=== PATIENT | male | born 1960 | race Caucasian/White ===

== ENCOUNTER 2020-04-02 06:51 | Outpatient (CLI) | payer BC, SELFPAY ==
--- NOTE | ~2020-04-02 | CT_ITS ---
EXAMINATION: CT abdomen pelvis w con DATE: 04/02/2020 07:32 INDICATION: Left lower quadrant pain TECHNIQUE: Computed tomography (CT) of the abdomen and pelvis was performed with 100 cc Omnipaque 350 intravenous contrast. The dose-length product was 644.55 mGy-cm. Automated exposure control and iter ative reconstruction technique were employed. COMPARISON: Comparison to multiple prior studies sequentially, with oldest reviewed study dated 07/23 FINDINGS: Lung bases are unremarkable. Heart size normal. There are several small subcentimeter hypod ensities of the liver, most likely benign cysts. The spleen, pancreas, adrenal glands and kidneys are unremarkable. Gallbladder is present. Nonobstructive bowel gas pattern. Stable cystic structure in t he right pelvis measuring 5.9 x 3.6 cm axial dimension, unchanged from prior studies, likely postsurg ical seroma or lymphangioma. Colonic diverticulosis without evidence for diverticulitis. Normal appen kaykay. No free air or free fluid. Bladder is decompressed. Gallbladder is present. Mild lumbar spondylo sis. IMPRESSION: 1. No acute abdominal abnormality. Reviewed, dictated and finalized at location B.
[2020-04-02 07:24] LABS: Estimated Glomerular Filt Rate > 60
== END 2020-04-02 06:52 | disposition home or self-care (01) ==
LOC: ANHIMG 06:56
PROVIDERS: PCP Family Medicine Adolescent Medicine; Visit Provider Internal Medicine Gastroenterology
DX: R10.32 Left lower quadrant pain (principal)
CPT/HCPCS: 74177; Q9967

== ENCOUNTER 2020-06-27 12:37 | Outpatient (CLI) | payer BC, SELFPAY ==
--- NOTE | ~2020-06-27 | CT_ITS ---
EXAMINATION: CT abdomen pelvis w con INDICATION: Diverticulitis of the large intestine without perforation TECHNIQUE: Computed tomographic images of the abdomen and pelvis were obtained after the administrati on of 100 cc of Omnipaque 350 intravenous contrast. The dose-length product (DLP) was 1039.98 mGy-cm. Automated exposure control and iterative reconstruction technique were employed. COMPARISON: 04/02/2020 FINDINGS: Minimal dependent atelectasis is present in the lung bases. The heart size is normal. Chron ic cysts of the liver measure up to 10 mm in the right hepatic lobe. The spleen, pancreas, gallbladde r, and adrenal glands are normal. There is a 7 mm cyst of the left kidney. Small accessory renal vein and artery are noted in the right kidney lower pole. There is calcified atherosclerosis of the aorta and many of the other arteries. No pathologically enlarged abdominal or pelvic lymph nodes are ident ified. There is a chronic, benign 5.9 x 3.4 cm fluid attenuation lesion of the right pelvis which has been stable since the postprostatectomy, most consistent with a peritoneal inclusion cyst, seroma, o r lymphangioma. The appendix is normal. Colonic diverticulosis is present without evidence of diverti culitis. There is mild lumbar spondylosis. IMPRESSION: 1. Diverticulosis without evidence of diverticulitis. Reviewed, dictated and finalized at location A. OG CIRCUIT DESIGNER
[2020-06-27 13:11] LABS: Estimated Glomerular Filt Rate > 60
== END 2020-06-27 12:38 | disposition home or self-care (01) ==
LOC: ANHIMG 12:38
PROVIDERS: PCP Family Medicine Adolescent Medicine; Visit Provider Surgery
DX: K57.30 Diverticulosis of large intestine without perforation or abscess without bleeding (principal)
CPT/HCPCS: 74177; Q9967

== ENCOUNTER 2021-05-04 16:22 | Inpatient (IN) | payer BC, SELFPAY ==
[2021-05-04] VITALS (22 sets, daily range): BP systolic 123–156; BP diastolic 61–91; PULSE 70–79; RESP 12–20; TEMP 36.3–36.6; O2SAT 90–98; BMI 28.3
--- NOTE | ~2021-05-04 | CT_ITS ---
EXAMINATION: CT abdomen pelvis w con DATE: 05/04/2021 18:54 INDICATION: History of diverticulitis. Generalized abdominal pain and nausea. TECHNIQUE: Computed tomography (CT) of the abdomen and pelvis was performed with 100 cc Omnipaque 350 intravenous contrast. The dose-length product was 828.61 mGy-cm. Automated exposure control and iter ative reconstruction technique were employed. COMPARISON: CT dated 06/27/2020. FINDINGS: There is bibasilar atelectasis/scarring. Heart size is normal. No significant pleural or pe ricardial effusion. No significant vascular abnormality. No lymphadenopathy. Fatty infiltration of the liver. There are several small low-density lesions in the liver which are m ost likely benign cysts. The spleen, pancreas, adrenal glands and right kidney are unremarkable. Ther e is a subcentimeter hypodensity of the left kidney which is unchanged, likely benign cysts. Gallblad marcia is present. Nonobstructive bowel gas pattern. There is thickening of the proximal sigmoid colon with surrounding inflammation, consistent with acut e diverticulitis. No evidence for perforation or abscess. No free air or free fluid. There is a stabl e low-density fluid collection along the obturator location of the right pelvis, likely benign postop erative lymphangioma or peritoneal inclusion cyst. Mild osteoarthritis of the hips. There is mild lum bar spondylosis. IMPRESSION: 1. Acute uncomplicated diverticulitis. Reviewed, dictated and finalized at location A. RERS HELPER
[2021-05-04 17:12] LABS: Basophils Absolute Auto 0.1 K/mm3 (0.0-0.1); Basophils Percent Auto 0.5 % (0.2-1.2); Eosinophils Absolute Auto 0.2 K/mm3 (0-0.3); Hematocrit 42.5 % (42.0-52.0); Hemoglobin 15.4 g/dL (14.0-18.0); Immature Granulocyte Absolute 0.06 K/mm3 (0.00-0.031); Immature Granulocyte Percent A 0.6 % (0-0.5); Lymphocytes Absolute Auto 1.41 K/mm3 (0.9-3.2); Lymphocytes Percent Auto 13.1 % (18.3-44.2); Mean Corpuscular HGB Conc 36.2 g/dl (32-36); Mean Corpuscular Hemoglobin 37.1 pg (26-34); Mean Corpuscular Volume 102.4 fl (80-100); Monocytes Absolute Auto 0.8 K/mm3 (0.1-0.6); Neutrophils Absolute Auto 8.3 K/mm3 (1.3-6.7); Neutrophils Percent Auto 76.8 % (45.5-73.1); Platelet Count Result 146 k/mm3 (150-375); Red Blood Count 4.15 M/mm3 (4.6-6.20); Red Cell Distribution Width 13.7 % (11.5-14.5); White Blood Count 10.8 K/mm3 (4.5-10.0)
[2021-05-04 17:21] LABS: Chloride 102 mmol/L (98-107)
[2021-05-04 17:36] LABS: Alanine Aminotransferase 33 U/L (4-50); Albumin Level 4.3 g/dL (3.5-5.1); Alkaline Phosphatase 94 U/L (38-126); Anion Gap 8 mmol/L (8-16); Aspartate Amino Transferase 36 U/L (17-59); Bilirubin,Total 0.6 mg/dL (0.2-1.3); Blood Urea Nitrogen 14 mg/dL (9-20); Calcium 9.3 mg/dL (8.4-10.2); Carbon Dioxide 28 mmol/L (22-30); Estimated CRCL calculation 102 ml/min; Estimated Glomerular Filt Rate > 60; Glucose 111 mg/dL (65-110); Lipase 65 U/L (23-300); Potassium 3.7 mmol/L (3.4-5.0); Sodium 138 mmol/L (137-145)
[2021-05-04 17:58] LABS: Add Urine Microscopic? YES; Appearance Urine Clear (Clear); Bilirubin Urine Negative (Negative); Blood Urine Negative (Negative); Color Urine Yellow (Yellow); Glucose Urine UA Negative (Negative); Ketones Urine Negative (Negative); Leukocyte Esterase Ur Trace LEU/UL (Negative); Mucus Urine Few /lpf; Nitrate Urine Negative (Negative); Protein Urine Negative (Negative); RBC Urine 0-2 /hpf (0-2); Specific Grav Ur 1.024 (1.001-1.035); Squamous Epithelial Cell Urine Rare /hpf (Few); Urobilinogen Urine Negative mg/dL (<2.0); WBC Urine 0-3 /hpf
--- NOTE | 2021-05-04 18:10 | ED.ABDPAIN ---
HPI - Abdominal Pain General Chief Complaint: Abdominal Pain Stated Complaint: diverticulitis Time Seen by Provider: 05/04/21 17:58 Source: patient, family and RN notes reviewed Mode of arrival: ambulatory Limitations: no limitations History of Present Illness HPI narrative: Left lower quadrant pain radiating across the abdomen started last night associated with nausea. Patient denies any fever, chills, vomiting, diarrhea, constipation. Patient reports having similar symptoms in the past secondary to diverticulitis. This 1 is the worst. Related Data Home Medications Medication Instructions Recorded Confirmed alprazolam 1 mg PO DAILY 04/28/19 08/01/20 amlodipine 5 mg PO DAILY 04/28/19 08/01/20 aspirin 325 mg PO DAILY 04/28/19 08/01/20 omeprazole 20 mg PO DAILY 04/28/19 08/01/20 simvastatin 20 mg PO DAILY 04/28/19 08/01/20 Allergies Allergy/AdvReac Type Severity Reaction Status Date / Time No Known Allergies Allergy Verified 05/04/21 18:14 Review of Systems Review of Systems: CONSTITUTIONAL: Denies fever, chills, or sweats. EYES: Denies visual changes, redness, or discharge. ENT: Denies rhinorrhea, congestion, sore throat, or otalgia. CARDIOVASCULAR: Denies chest pain, palpitations, or edema. RESPIRATORY: Denies cough or dyspnea. GASTROINTESTINAL: Denies abdominal pain, nausea, vomiting, or diarrhea. GENITOURINARY: Denies dysuria or hematuria. SKIN: Denies rash or itching. MUSCULOSKELETAL: Denies back pain, joint pain, or myalgia. NEUROLOGIC: Denies headache, numbness, or weakness. PSYCHIATRIC: Denies anxiety or depression. [facility] Past Medical History Medical History Anxiety Asthma Degenerative disc disease Diverticulitis GERD (gastroesophageal reflux disease) Hypercholesterolemia Hypertension Neck pain with history of cervical spinal surgery Prostate cancer Surgical History Surgical History H/O Spinal surgery History of prostate surgery Hx of skin graft on top of bilateral feet Family History Family History Mother Patient's mother is in good health Sibling Patient's sister is in good health Patient's brother is in good health Other Cerebrovascular accident Hypertension Social History Social History Smoking packs per day: 1.5 Smoking cigarettes per day: 30.0 Years smoked: 40 Smoking pack-years: 60.00 Smoking status: Current every day smoker Tobacco type: cigarettes Alcohol intake: current Alcohol use details: social Additional occupation/education comments: [employer] Gender identity (if verbalized by the patient): Male Exam Narrative: General appearance: Well-developed, well-nourished Skin: Normal color Head: Normocephalic, nontraumatic Eyes: Clear conjunctiva ENT: Oropharynx normal, ears normal, nose normal Neck: Supple, nontender Chest and respiratory: Airway patent, no respiratory distress, no accessory muscle use Heart: Regular rate/rhythm Abdomen: Soft, severe tenderness left lower quadrant, positive guarding and rebound, no organomegaly, quiet bowel sounds Vascular: Normal peripheral pulses, normal capillary refill. Musculoskeletal: Normal range of motion, nontender back Neurologic: Alert and oriented ?3, [place] [employer] is normal as tested, no gross motor deficit Course Course Emergency Course: Stable Vital Signs Vital signs: Vital Signs Pulse Rate 79 05/04/21 16:47 Respiratory Rate 14 05/04/21 16:47 Blood Pressure 132/76 05/04/21 16:47 Pulse Oximetry 97 04/14
[2021-05-04] MEDS: ONDANSETRON INJ 4 MG/2 ML VIAL IV PUSH (18:32)
[2021-05-04] MEDS: HYDROmorphone HCL INJ (*CRX) 1 MG/ML SYR 0.5 MG IV PUSH ×2 (18:32→20:54)
[2021-05-04] MEDS: SODIUM CHLORIDE 0.9% IV 1,000 ML 999 ML IV CONT (18:32)
[2021-05-04] MEDS: SODIUM CHLORIDE 0.9% IV 1,000 ML 125 ML IV CONT (20:28)
--- NOTE | 2021-05-04 22:53 | PM.IMHP ---
H&P: HPI History of Present Illness Date/Time: 05/04/21 22:53 Chief Complaint: Abdominal pain Narrative: This is a 61-year-old male who presents with left lower quadrant pain radiating across the abdomen that started since last night associated with nausea no vomiting no fever chills diarrhea or constipation. He had similar episodes in the past related to diverticulitis ER evaluation suggestive uncomplicated diverticulitis. He is getting admitted for further treatment Review of Systems Review of Systems: - CONSTITUTIONAL: Denies weight loss, fever and chills. - HEENT: Denies changes in vision and hearing - RESPIRATORY: Denies SOB and cough. - CV: Denies palpitations and CP. - GI: Reports abdominal pain, nausea, denies vomiting and diarrhea. - : Denies dysuria and urinary frequency. - MSK: Denies myalgia and joint pain. - SKIN: Denies rash and pruritus. - NEUROLOGICAL: Denies headache and syncope. - PSYCHIATRIC: Denies recent changes in mood. Denies anxiety and depression. All systems reviewed & are unremarkable except as noted in HPI and below Constitutional: Constitutional: Reports fatigue and Reports weakness Neurologic: Reports weakness Endocrine: Endocrine: Reports fatigue [facility] Past Medical History Medical History (Updated 05/04/21 @ 22:56 by Wan Dixon MD) Anxiety Asthma Degenerative disc disease Diverticulitis GERD (gastroesophageal reflux disease) Hypercholesterolemia Hypertension Neck pain with history of cervical spinal surgery Prostate cancer Surgical History Surgical History H/O Spinal surgery History of prostate surgery Hx of skin graft on top of bilateral feet Family History Family History Mother Patient's mother is in good health Sibling Patient's sister is in good health Patient's brother is in good health Other Cerebrovascular accident Hypertension Social History Social History Smoking packs per day: 1.5 Smoking cigarettes per day: 30.0 Years smoked: 40 Smoking pack-years: 60.00 Smoking status: Current every day smoker Tobacco type: cigarettes Alcohol intake: current Alcohol use details: social Additional occupation/education comments: [employer] Gender identity (if verbalized by the patient): Male Meds Home Medications and Allergies Home Medications Medication Instructions Recorded Confirmed Type alprazolam 1 mg PO DAILY 04/28/19 08/01/20 History amlodipine 5 mg PO DAILY 04/28/19 08/01/20 History aspirin 325 mg PO DAILY 04/28/19 08/01/20 History omeprazole 20 mg PO DAILY 04/28/19 08/01/20 History simvastatin 20 mg PO DAILY 04/28/19 08/01/20 History Allergies Allergy/AdvReac Type Severity Reaction Status Date / Time No Known Allergies Allergy Verified 05/04/21 18:14 Vital Signs Vital Signs - 24 hr 05/04/21 16:47 05/04/21 17:49 05/04/21 17:50 Temperature Pulse Rate 79 75 Respiratory Rate 14 13 Blood Pressure 132/76 147/91 H Pulse Oximetry 97 05/04/21 18:00 05/04/21 18:12 05/04/21 18:15 Temperature 97.8 F Pulse Rate 75 72 73 Respiratory Rate 13 12 16 Blood Pressure 149/73 H Pulse Oximetry 97 96 05/04/21 18:17 05/04/21 18:30 05/04/21 19:45 Temperature Pulse Rate 72 Respiratory Rate Blood Pressure 156/88 H Pulse Oximetry 95 97 95 05/04/21 19:47 05/04/21 20:02 05/04/21 20:04 Temperature Pulse Rate 72 Respiratory Rate Blood Pressure 130/68 123/75 Pulse Oximetry 05/04/21 20:17 05/04/21 20:25 05/04/21 20:34 Temperature Pulse Rate Respiratory Rate Blood Pressure 151/74 H 148/83 H Pulse Oximetry 94 98 05/04/21 21:39 05/04/21 21:47 05/04/21 21:48 Temperature Pulse Rate 76 Respiratory Rate 20 Blood Pressure 132/66 132/61 Pulse Oximetry 98 94 91 05/04/21
[2021-05-04] MEDS: MORPHINE SULFATE (*CRX) 4 MG/ML INJ IV PUSH (23:30)
[2021-05-05] MEDS: MORPHINE SULFATE (*CRX) 4 MG/ML INJ IV PUSH ×8 (02:07→20:41)
[2021-05-05] MEDS: SODIUM CHLORIDE 0.9% IV 1,000 ML 125 ML IV CONT (04:24)
[2021-05-05 06:12] VITALS: BP 152/70; PULSE 80; RESP 18; TEMP 36.6; O2SAT 91
[2021-05-05 06:19] LABS: Basophils Percent Auto 0.4 % (0.2-1.2); Eosinophils Absolute Auto 0.2 K/mm3 (0-0.3); Eosinophils Percent Auto 2.2 % (0-4.4); Hematocrit 38.4 % (42.0-52.0); Hemoglobin 13.5 g/dL (14.0-18.0); Immature Granulocyte Absolute 0.05 K/mm3 (0.00-0.031); Immature Granulocyte Percent A 0.5 % (0-0.5); Lymphocytes Percent Auto 12.2 % (18.3-44.2); Mean Corpuscular HGB Conc 35.2 g/dl (32-36); Mean Corpuscular Volume 102.4 fl (80-100); Monocytes Absolute Auto 0.6 K/mm3 (0.1-0.6); Monocytes Percent Auto 6.4 % (2.6-8.5); Neutrophils Absolute Auto 7.7 K/mm3 (1.3-6.7); Neutrophils Percent Auto 78.3 % (45.5-73.1); Platelet Count Result 147 k/mm3 (150-375); Red Blood Count 3.75 M/mm3 (4.6-6.20); Red Cell Distribution Width 13.4 % (11.5-14.5); White Blood Count 9.9 K/mm3 (4.5-10.0)
[2021-05-05 08:44] LABS: Anion Gap 6 mmol/L (8-16); Blood Urea Nitrogen 11 mg/dL (9-20); Calcium 8.5 mg/dL (8.4-10.2); Carbon Dioxide 28 mmol/L (22-30); Chloride 100 mmol/L (98-107); Estimated CRCL calculation 102 ml/min; Estimated Glomerular Filt Rate > 60; Glucose 93 mg/dL (65-110); Magnesium 1.7 mg/dL (1.6-2.3); Potassium 3.9 mmol/L (3.4-5.0); Sodium 134 mmol/L (137-145)
[2021-05-05] MEDS: ENOXAPARIN 40 MG/0.4 ML SYRINGE SUB-Q (09:17)
--- NOTE | 2021-05-05 09:26 | PM.IMPN ---
Progress Note: A&P Assessment and Plan (1) Acute diverticulitis: Code(s): K57.92 - Diverticulitis of intestine, part unspecified, without perforation or abscess without bleeding Status: Acute Assessment and Plan: Patient is a 61-year-old man with a history of recurrent diverticulitis. The patient states he has about 6-7 flares of diverticulitis every year for the last 2 years. He has discuss with a surgeon for possible colon resection, but he has not underwent surgery. Usually his primary care prescribe him oral antibiotics to take at home but since his pain began over the weekend he came to the ER for further evaluation. Initial vitals were stable, stable blood pressure, non tachycardic, afebrile. Initial labs showed leukocytosis at 10,800, with elevated neutrophils. Normal CMP other than slightly elevated glucose at 111. Normal urinalysis. CT abdomen pelvis showed acute uncomplicated diverticulitis. The patient was admitted into the hospital for acute diverticulitis and started on IV Zosyn and IV fluid hydration along with I would be antiemetics and pain medications. Patient still having significant discomfort this morning. Able tolerate clear liquid diet Will lower IV fluids to 90 cc/hour and if he tolerates his lunch without any issues I will discontinue his fluids Will advance his diet to full liquid diet since he is not having any issues with eating as abdominal discomfort Will of initially advance diet to a low-fiber/low residual Hopefully 1-2 more days of hospitalization with IV antibiotics will help with his pain and symptoms Continue monitoring and checking labs daily. (2) Hypercholesterolemia: Code(s): E78.00 - Pure hypercholesterolemia, unspecified Status: Acute Assessment and Plan: Continue statin medication (3) Hypertension: Code(s): I10 - Essential (primary) hypertension Status: Acute Assessment and Plan: Blood pressure this morning was 152/70 prior to his medications being given. Most likely elevated blood pressure given pain Continue monitoring his blood pressure and adjustments if needed. Additional Plan # DVT prophylaxis Lovenox # full code status Time Spent With Patient Time with patient: 25 - 35 minutes Subjective Date/time seen: 05/05/21 09:26 Interval history: Date of service 05/05/2021: The patient reports still having left lower abdominal pain. He states that is pretty significant at this time he is waiting for another IV pain medication injection. He has been able to eat his clear liquid diet without any issues. Denies any nausea, vomiting, diarrhea, constipation. He denies any fevers, chills, chest pain, shortness of breath, cough, leg swelling, calf pain or any other symptoms at this time. Review of Systems Review of Systems: All systems reviewed & are unremarkable except as noted in HPI and below Exam Narrative: General: 61-year-old man sitting up on the side of the bed holding his left lower quadrant. Appears slightly uncomfortable. In no acute distress. Skin: No jaundice or cyanosis. Good skin turgor. Neck: Full range of motion. Supple. Respiratory: Lungs are clear to auscultation bilaterally. No bony chest wall tenderness. Cardiovascular: The heart has a regular rate and rhythm without murmur. Lower extremities: No lower extremity edema. Distal pulses are easily palpated. No calf tenderness to palpation. Gastrointestinal: Diffuse abdominal distension, tenderness to palpation of left lower and upper quadrant. No rebound or guarding. The abdomen has active bowel sounds. Psychiatric: Lucid and oriented. Memory intact. Neurologic: No focal deficits. Speech is clear. No facial drooping. Objective Data Vital Signs Vital Signs: Vital Signs - 24 hr 05/04/21 16:47 05/04/21 17
[2021-05-05 14:00] VITALS: BP 122/65; PULSE 72; RESP 20; TEMP 36.7; O2SAT 94
[2021-05-05 20:51] VITALS: PULSE 73; O2SAT 90
[2021-05-05 21:35] VITALS: BP 124/56; PULSE 73; RESP 18; TEMP 36.6; O2SAT 89
[2021-05-06] MEDS: MORPHINE SULFATE (*CRX) 4 MG/ML INJ IV PUSH ×2 (00:11→05:31)
[2021-05-06 06:45] LABS: Hemoglobin 13.9 g/dL (14.0-18.0); Mean Corpuscular HGB Conc 35.6 g/dl (32-36); Mean Corpuscular Hemoglobin 36.9 pg (26-34); Mean Corpuscular Volume 103.4 fl (80-100); Mean Platelet Volume 10.5 fl (7.4-10.4); Platelet Count Result 142 k/mm3 (150-375); Red Blood Count 3.77 M/mm3 (4.6-6.20); Red Cell Distribution Width 13.4 % (11.5-14.5); White Blood Count 7.2 K/mm3 (4.5-10.0)
[2021-05-06 06:57] LABS: Anion Gap 6 mmol/L (8-16); Blood Urea Nitrogen 9 mg/dL (9-20); Carbon Dioxide 29 mmol/L (22-30); Chloride 101 mmol/L (98-107); Estimated CRCL calculation 102 ml/min; Estimated Glomerular Filt Rate > 60; Glucose 104 mg/dL (65-110); Potassium 3.8 mmol/L (3.4-5.0); Sodium 136 mmol/L (137-145)
[2021-05-06 08:00] VITALS: BP 143/65; PULSE 73; RESP 20; TEMP 36.4; O2SAT 94
[2021-05-06] MEDS: HYDROcodone/acetaminophen (*CRX) 5-325 MG TABLET 1 TAB PO (09:15)
[2021-05-06] MEDS: ENOXAPARIN 40 MG/0.4 ML SYRINGE SUB-Q (09:17)
[2021-05-06] MEDS: PANTOPRAZOLE 40 MG TABLET PO (09:20)
[2021-05-06] MEDS: amLODIPine BESYLATE 5 MG TABLET PO (09:20)
[2021-05-06] MEDS: SIMVASTATIN 20 MG TABLET PO (09:20)
[2021-05-06] MEDS: ASPIRIN 325 MG TABLET PO (09:20)
--- NOTE | 2021-05-06 10:33 | PM.DS ---
DS: Admitting Diagnosis Discharge Date 05/06/21 Admitting Diagnosis Abd pain DS: Discharge Diagnosis Discharge Diagnosis (1) Acute diverticulitis: Code(s): K57.92 - Diverticulitis of intestine, part unspecified, without perforation or abscess without bleeding Status: Acute Assessment and Plan: Patient is a 61-year-old man with a history of recurrent diverticulitis. The patient states he has about 6-7 flares of diverticulitis every year for the last 2 years. He has discuss with a surgeon for possible colon resection, but he has not underwent surgery. Usually his primary care prescribe him oral antibiotics to take at home but since his pain began over the weekend he came to the ER for further evaluation. Initial vitals were stable, stable blood pressure, non tachycardic, afebrile. Initial labs showed leukocytosis at 10,800, with elevated neutrophils. Normal CMP other than slightly elevated glucose at 111. Normal urinalysis. CT abdomen pelvis showed acute uncomplicated diverticulitis. The patient was admitted into the hospital for acute diverticulitis and started on IV Zosyn and IV fluid hydration along with I would be antiemetics and pain medications. Patient is feeling much better at this time and tolerating a low fiber diet He feels comfortable at this time and wants to be discharged home. He has antibiotics and pain medications prescribed by his PCP at home for a total of 7 days of treatment. I told him to take it in full until gone. I prescribed a Probiotic. He will follow up with PCP in 1 week. Return to ER warnings given. Patient understands agrees the plan all questions answered (2) Hypercholesterolemia: Code(s): E78.00 - Pure hypercholesterolemia, unspecified Status: Acute Assessment and Plan: Continue statin medication (3) Hypertension: Code(s): I10 - Essential (primary) hypertension Status: Acute Assessment and Plan: Blood pressure this morning was 143/65 prior to his medications being given. DS: Summary Hospital Course Hospital Course: See above Time Spent with Patient Time attestation: Total time spent providing and/or coordinating discharge services: 41 Exam Narrative: General: 61-year-old man laying on his right side in bed resting. Appears slightly comfortable at this time and while moving to his back on the bed. In no acute distress. Skin: No jaundice or cyanosis. Good skin turgor. Neck: Full range of motion. Supple. Respiratory: Lungs are clear to auscultation bilaterally. No bony chest wall tenderness. Cardiovascular: The heart has a regular rate and rhythm without murmur. Lower extremities: No lower extremity edema. Distal pulses are easily palpated. No calf tenderness to palpation. Gastrointestinal: No abd tenderness. Soft to palpation. No rebound or guarding. The abdomen has active bowel sounds. Psychiatric: Lucid and oriented. Memory intact. Neurologic: No focal deficits. Speech is clear. No facial drooping. DS: Data Data Completed and Pending Labs on day of discharge: Labs from last 24 hours 05/06/21 05/06/21 05/06/21 08:14 05:55 05:55 WBC 7.2 RBC 3.77 L Hgb 13.9 L Hct 39.0 L MCV 103.4 H MCH 36.9 H MCHC 35.6 RDW 13.4 Plt Count 142 L MPV 10.5 H Sodium 136 L Potassium 3.8 Chloride 101 Carbon Dioxide 29 Anion Gap 6 L BUN 9 Creatinine 0.70 Estim Creat Clear Calc 102 Estimated GFR > 60 Glucose 104 Calcium 9.0 Magnesium 2.0 Vitamin B12 299.0 Folate Pending Discharge Plan Discharge Attending physician on discharge: Aleah Doll Discharging Clinician: Rianna Arroyo Anticipated Discharge Date/Time: 05/06/21 10:30 Patient Disposition: Home, Self-Care Activity: as tolerated
[2021-05-06 11:25] LABS: Folic Acid 7.2 ng/mL (2.76->20)
== END 2021-05-06 11:05 | disposition home or self-care (01) | DRG 392 ==
LOC: ANHED 19:22 → ANH3MEDSUR 23:13
PROVIDERS: Admitting Provider Internal Medicine; Emergency Provider Emergency Medicine; PCP Family Medicine Adolescent Medicine; Visit Provider Physician Assistant
DX: K57.32 Diverticulitis of large intestine without perforation or abscess without bleeding (principal); E78.00 Pure hypercholesterolemia, unspecified; I10 Essential (primary) hypertension; K21.9 Gastro-esophageal reflux disease without esophagitis; J45.909 Unspecified asthma, uncomplicated; F41.9 Anxiety disorder, unspecified; F17.210 Nicotine dependence, cigarettes, uncomplicated; Z85.46 Personal history of malignant neoplasm of prostate
CPT/HCPCS: 36415; 74177; 80048; 80053; 81001; 82607; 82746; 83690; 83735; 85025; 85027; 96361; 96374; 96375; 99285; A9270; J1170; J1650; J2270; J2405; J2543; J7030; Q9967

== ENCOUNTER 2021-06-16 12:00 | Outpatient (CLI) | payer BC, SELFPAY ==
--- NOTE | 2021-06-16 12:39 | ECG_ITS ---
Rate 67 ID 106 QRSd 141 QT 369 QTc 392 --Combs-- P 22 QRS -44 T -11 SINUS RHYTHM WITH SHORT ID INTERVAL LEFT AXIS DEVIATION RIGHT BUNDLE BRANCH BLOCK BASELINE ARTIFACT- I, II, III, AVR, AVL, AVF, V4-V6 ABNORMAL ECG Electronically Signed On 06-17-2021 9:57:58 EXTERNAL RELATIONS MANAGER by Dionte [id number]
== END 2021-06-16 12:01 | disposition home or self-care (01) ==
LOC: ANHSURGERY 12:04
PROVIDERS: PCP Family Medicine Adolescent Medicine; Visit Provider Surgery
DX: K57.92 Diverticulitis of intestine, part unspecified, without perforation or abscess without bleeding (principal); Z01.818 Encounter for other preprocedural examination
CPT/HCPCS: 36415; 86850; 86900; 86901; 93005

== ENCOUNTER 2021-06-29 17:19 | Inpatient (IN) | payer BC, SELFPAY ==
--- NOTE | 2021-06-16 11:43 | PC.NURSE ---
Report to the Outpatient Waiting Room, entrance under the green pavilion located off [facility], at time _1000_ on date _06/29/21_. OR Time: _1200___. - You and your visitor will be asked a series of questions to screen for COVID 19 for your protection. - A mask is required within the hospital. - NO visitors are allowed at this time. Patient visitors will be guided where to wait when not with patient. Preoperative COVID Testing Requirements: No COVID Test needed if: (proof is required; if not received patient will have Rapid Test prior to entry) - Patient has received COVID Vaccine at least 14 days prior to procedure date or - Patient has positive COVID test result within last 90 days of surgery date. COVID Test needed if above criteria is not met If not COVID vaccinated a COVID test must be conducted within 72 hours of surgery and patient is asked to isolate self from time of testing until procedure. You will go to the [facility] for your COVID testing. The [facility] site is located at the corner of [address] [facility]. You will only be called if COVID results are positive and your surgeon may reschedule your elective surgery date. Patients may have clear liquids (water, carbonated beverages, clear teas, apple juice) until 3 hours prior to surgery with a maximum of 20 ounces. (0900 AM) - No food from midnight until time of surgery - Infants may have breast milk until 4 hours before surgery, infant formula 6 hours prior to surgery. - Children will be allowed to drink immediately following surgery. If applicable, please bring a bottle or sippy cup to assist with drinking. Juice, water, soda, and popsicles are readily available. For infants on formula, please bring formula the day of surgery. Pacifiers are allowed. Take the following medications with a SIP of water the morning of surgery: __AMLODIPINE, ALLPRAZOLAM__ Medications to discontinue per DR. ACOSTA - ASPIRIN 5 DAYS PRIOR, LAST DOSE TO BE TAKEN ON 06/23/21 Medications to discontinue per ANESTHESIA - VIT B-12 3 DAYS PRIOR, LAST DOSE TO BE TAKEN ON 06/25/21 Please no make-up, nail trinidadian, hairspray, perfume, deodorant, or body powder the day of surgery. No jewelry (including any body piercings) or valuables the day of surgery, leave them at home. Please take a shower or bath the night before, or the morning of, surgery with an antibacterial soap. Wear comfortable, loose fitting clothing. Children are encouraged to wear pajamas. - Jewelry must be removed prior to entering the operating room. Rings and piercings that are not removed may be cut off. - The hospital will not accept responsibility for valuables. - Please leave all valuables, including medications, at home the day of surgery. If you are going home after surgery, a licensed pharmacy delivery driver must drive you home. - NO public transportation without another adult. - We recommend that an adult stay with you for 24 hours following discharge. - We also recommend that you do not drive, make important decision, drink alcoholic beverages, or take any drugs that were not prescribed by your health care provider for at least 24 hours after your discharge time. For Pediatric surgeries, we recommend two adults accompany the child home (only one inside the building at this time). Follow any additional instructions given to you from your surgeon. DIET, ENSURE BUNDLE, BOWEL PREP, PRE-OP ANTIBIOTICS IF ANY, HIBICLENS SHOWER NIGHT BEFORE & AM OF SURGERY Telephone instructions given to ____PT and asked if any additional questions and then verbalized understanding. Patient advised to call surgeon office or pre surgery nurse liaison [phone] if any additional questions.
[2021-06-16 12:22] VITALS: BP 160/80; PULSE 80; RESP 20; TEMP 36.8; O2SAT 95; BMI 28.4
[2021-06-29] VITALS (14 sets, daily range): BP systolic 129–155; BP diastolic 69–81; PULSE 75–89; RESP 12–16; TEMP 36.3–37.2; O2SAT 91–98
[2021-06-29] MEDS: LACTATED RINGERS 1,000 ML 30 ML IV CONT ×2 (10:30→16:09)
--- NOTE | 2021-06-29 10:47 | WPDANESEPPF ---
Anes - Initial Pre Proc Eval Procedure: Operation Date: 06/29/21 12:00 Proposed Procedures p Hand Assisted Laparoscopic Sigmoidectomy, Possible Open - Cory Oconnor DO Date/Time: 06/29/21 10:47 Surgeon: Cory Oconnor DO Pre Op Diagnosis: Diverticulitis without perforation or abscess Patient Data Age: 61 Gender: M Height: 1.8 m Weight: 92.6 kg Last Vital Signs Temp 36.8 C 06/16/21 12:22 Pulse 80 06/16/21 12:22 Resp 20 06/16/21 12:22 BP 160/80 H 06/16/21 12:22 Pulse Ox 95 06/16/21 12:22 Allergies Allergy/AdvReac Type Severity Reaction Status Date / Time No Known Allergies Allergy Verified 06/16/21 12:17 Home Medications Medication Instructions Recorded Confirmed Type alprazolam 1 mg PO QAM 04/28/19 06/16/21 History amlodipine 5 mg PO QAM 04/28/19 06/16/21 History aspirin 325 mg PO QAM 04/28/19 06/16/21 History omeprazole 20 mg PO QAM 04/28/19 06/16/21 History simvastatin 20 mg PO QAM 04/28/19 06/16/21 History cyanocobalamin (vitamin B-12) 1,000 mcg PO QAM 06/16/21 06/16/21 History erythromycin 500 mg tablet See Rx Instructions .ROUTE 06/16/21 Rx .COMPLEX #6 tablet neomycin 500 mg tablet See Rx Instructions .ROUTE 06/16/21 Rx .COMPLEX #6 tablet Patient hx anesthesia problems: none Family hx anesthesia problems: none Results Review: All pre-operative results and documents have been reviewed as part of the pre-operative evaluation. [facility] Past Medical History Medical History (Updated 06/29/21 @ 10:48 by Barry Escobar DO) Anxiety Asthma COPD (chronic obstructive pulmonary disease) Degenerative disc disease Diverticulitis GERD (gastroesophageal reflux disease) Hypercholesterolemia Hypertension Neck pain with history of cervical spinal surgery Prostate cancer Surgical History Surgical History (Updated 06/29/21 @ 10:48 by Barry Escobar DO) H/O Spinal surgery C5-7 History of prostate surgery Hx of skin graft on top of bilateral feet Family History Family History Mother Patient's mother is in good health Hypertension PVD (peripheral vascular disease) Sibling Patient's brother is in good health Patient's sister is in good health Father Cerebrovascular accident Acute myocardial infarction Hypertension Social History Social History Smoking packs per day: 1 Smoking cigarettes per day: 20.0 Years smoked: 47 Smoking pack-years: 47.00 Smoking status: Current every day smoker Tobacco type: cigarettes Second hand tobacco smoke exposure: Yes Alcohol intake: current Drinks per week: 10 Alcohol use details: social Substance use: current Substance use type: marijuana Other substance usage details: STATES SMOKES 1-2 HITS COUPLE TIME A WEEK Living arrangements: with family Additional occupation/education comments: [employer] Gender identity (if verbalized by the patient): Male Spiritual care concerns: Yes Anes - Eval Final PreProcedure Day of Procedure 06/29/21 10:47 Patient weight: overweight Heart: regular rate and rhythm Lungs: clear to auscultation and normal air movement Airway: Mallampati scale class II Neurological: alert and oriented Last oral intake: >/= 8 hours ASA classification: III Emergent: no Anesthetic plan: proceed Anesthesia type and monitoring: general ETT and standard monitoring Results Review: All pre-operative results and documents have been reviewed as part of the pre-operative evaluation. Informed Consent: The patient's anesthetic plan and its attendant risks and benefits were discussed with the patient/family/POA. Questions were solicited and answers provided to the satisfaction of the patient/family/POA.
[2021-06-29] MEDS: KETOROLAC 15 MG/ML VIAL (*BKC) IV PUSH (11:00)
[2021-06-29] MEDS: ACETAMINOPHEN 500 MG TABLET 1000 MG PO ×2 (11:00→23:47)
[2021-06-29] MEDS: MIDAZOLAM HCL (*CRX) 2 MG/2 ML VIAL IV PUSH (11:27)
--- NOTE | 2021-06-29 11:36 | WPDHPUPDATE1 ---
History and Physical Update Update Date/Time: 06/29/21 11:36 History and Physical has been reviewed, including an updated exam of the patient. There are NO changes in the patient's condition. Risks, benefits, and alternatives have been discussed and questions answered. Patient agrees to proceed with procedure.
--- NOTE | 2021-06-29 11:36 | PM.IMHP ---
H&P: HPI History of Present Illness Date/Time: 06/29/21 11:36 Chief Complaint: recurrent diverticulitis Narrative: This is a 61 yo man who presents for sigmoid colectomy. He has had multiple prior episodes of diverticulitis. The most recent episode was in April 2021 and he was hospitalized for several days. He was sent home on oral antibiotics. After further discussion as an outpatient he wishes to proceed with elective sigmoid colectomy. Review of Systems Review of Systems: All systems reviewed & are unremarkable except as noted in HPI and below Constitutional: Constitutional: Denies chills, Denies fever(s), Denies headache(s) and Denies weight loss Eyes: Eyes: Denies change in vision ENT: Denies dizziness, Denies headache(s), Denies neck mass and Denies throat swelling Cardiovascular: Cardiovascular: Denies chest pain, Denies lightheadedness and Denies dyspnea Respiratory: Respiratory: Denies cough, Denies dyspnea and Denies wheezing Gastrointestinal: Gastrointestinal: Denies abdominal pain, Denies change in bowel habits, Denies nausea and Denies vomiting Genitourinary: Genitourinary: Denies hematuria and Denies dysuria Musculoskeletal: Musculoskeletal: Reports as per HPI Integumentary/Breasts: Skin/Breast: Reports as per HPI Neurologic: Denies dizziness and Denies headache(s) Allergic/Immunologic: Allergic/Immunologic: Denies throat swelling and Denies wheezing [facility] Past Medical History Medical History (Updated 06/29/21 @ 10:48 by Barry Escobar DO) Anxiety Asthma COPD (chronic obstructive pulmonary disease) Degenerative disc disease Diverticulitis GERD (gastroesophageal reflux disease) Hypercholesterolemia Hypertension Neck pain with history of cervical spinal surgery Prostate cancer Surgical History Surgical History (Updated 06/29/21 @ 10:48 by Barry Escobar DO) H/O Spinal surgery C5-7 History of prostate surgery Hx of skin graft on top of bilateral feet Family History Family History Mother Patient's mother is in good health Hypertension PVD (peripheral vascular disease) Sibling Patient's brother is in good health Patient's sister is in good health Father Cerebrovascular accident Acute myocardial infarction Hypertension Social History Social History Smoking packs per day: 1 Smoking cigarettes per day: 20.0 Years smoked: 47 Smoking pack-years: 47.00 Smoking status: Current every day smoker Tobacco type: cigarettes Second hand tobacco smoke exposure: Yes Alcohol intake: current Drinks per week: 10 Alcohol use details: social Substance use: current Substance use type: marijuana Other substance usage details: STATES SMOKES 1-2 HITS COUPLE TIME A WEEK Living arrangements: with family Additional occupation/education comments: [employer] Gender identity (if verbalized by the patient): Male Spiritual care concerns: Yes Meds Home Medications and Allergies Home Medications Medication Instructions Recorded Confirmed Type alprazolam 1 mg PO QAM 04/28/19 06/16/21 History amlodipine 5 mg PO QAM 04/28/19 06/16/21 History aspirin 325 mg PO QAM 04/28/19 06/16/21 History omeprazole 20 mg PO QAM 04/28/19 06/16/21 History simvastatin 20 mg PO QAM 04/28/19 06/16/21 History cyanocobalamin (vitamin B-12) 1,000 mcg PO QAM 06/16/21 06/16/21 History erythromycin 500 mg tablet See Rx Instructions .ROUTE 06/16/21 Rx .COMPLEX #6 tablet neomycin 500 mg tablet See Rx Instructions .ROUTE 06/16/21 Rx .COMPLEX #6 tablet Allergies Allergy/AdvReac Type Severity Reaction Status Date / Time No Known Allergies Allergy Verified 06/16/21 12:17 Exam Const: General: no acute distress and alert Orientation/consciousness: patient oriented x3 HENMT: Head: normocephalic and atraumatic Ears: hearing grossly norm
[2021-06-29] MEDS: ceFAZolin 2 GM/D5W 50 ML 2 GM/50 ML BAG IVPB (12:30)
[2021-06-29] MEDS: metroNIDAZOLE 500 MG/ISO 100ML 500 MG/100 ML BAG 100 MG IVPB (12:32)
--- NOTE | 2021-06-29 16:27 | W.PM.PROC2 ---
Procedure Note - Detailed Date of Procedure 06/29/21 Pre-op Diagnosis Diverticulitis without perforation or abscess Post-op Diagnosis same Procedure Performed Hand assisted laparoscopic sigmoid colectomy with colorectal anastomosis Surgeon Cory Oconnor DO Teller Broderick Wise MD Anesthesia general and local (Exparel) Indications This is a 61-year-old man who presented with recurrent episodes sigmoid diverticulitis. He has had several episodes before and has had to be admitted to the hospital with previous episodes. He has never had an abscess or required any other intervention other than medical treatment. He was given the option of continued close observation with intermittent treatment for a acute episodes or the option of proceeding with elective sigmoid colectomy. Patient wanted to proceed with surgery to prevent these recurrent attacks. I have recommended hand assisted laparoscopic sigmoid colectomy, possible open. Findings Hand assisted laparoscopic sigmoid colectomy was performed. The sigmoid colon had some chronic induration but no evidence of abscess or perforation at this time. There were many diverticuli I along the sigmoid colon, the descending colon appeared relatively free of diverticulosis. The rectum appeared healthy. Patient did have a fairly thick mesocolon and hot epiploic appendages which made identification of the inferior mesenteric artery ureter somewhat difficult at 1st. I started with a medial to lateral dissection but then also had to switch course to a lateral to medial dissection to adequately identify the ureter and other structures. Performed a high ligation of the inferior mesenteric artery to allow adequate mobilization the mesocolon down into the pelvis. I then came across the sigmoid artery with LigaSure bipolar cautery as well. A 28 mm EEA stapler was used for the anastomosis. I initially used the auto pursestring device to place the pursestring suture around the descending colon, but this appeared very weak and it looked as though the suture was not going to come all the way around without a large gap in the mucosa. I then removed the pursestring suture and we did the pursestring suture with a 3-0 Prolene pursestring suture that was hand sewn. After performing the anastomosis, I performed the leak test with filling the pelvis with sterile saline. I did see 1 or 2 bubbles at 1st when air was insufflated, but then as air was further insufflated I did not see any more bubbles. It seemed likely that this was most likely some air trapped between my hand and the presacral region. After aspirating the fluid and then refilling the pelvis with saline a couple more times and reinsufflated in the rectum with air, I did not see any further bubbles. The anastomosis appeared healthy and viable internally through a rigid proctoscopy and the anastomotic rings appeared circumferential. I chose to place a 19 round NICK drain into the pelvis to carefully monitor for any other postoperative signs of leak. The ICG infusion was done twice to assess the perfusion to the colon both before the anastomosis and after. Perfusion appeared excellent to the anastomosis. The sigmoid colon was sent to the lab for pathology. Description of Procedure Procedure as well as risks benefits and alternatives were explained to the patient. Written consent was obtained and placed in chart prior to procedure. Patient was brought back to surgical suite. He was placed supine on operating table. Time-out was done to confirm patient procedure. He was then intubated by the anesthesia department. He was re-positioned to modified lithotomy position. His abdomen was prepped and draped in sterile fashion using chlorhexidine prep. His rectum was irrigated with Betadine and his perirectal area was prepped and draped in sterile fashion using Betadine prep. A 7 centimeter vertical incision was made inferior to the umbilicus using a 15 blade scalpel. Elect
[2021-06-29] MEDS: fentaNYL CITRATE INJ (*CRX) 100 MCG/2 ML VIAL 25 MCG IV PUSH ×4 (16:29→16:57)
--- NOTE | 2021-06-29 17:37 | ADMGEN ---
This patient, Leonel Renteria, was admitted to [facility]. Patient oriented to hospital policies and general routines including ID bracelet, bed and alarms, visiting hours, pain management, procedures, bathroom and other care routines, personal items, smoking policy, room service/diet, and visiting hours. Information on how to activate the Rapid Response Team has been discussed. Patient are encouraged to report perceived risks to care and to ask questions if they do not understand what they are told or what they should do.
[2021-06-29] MEDS: LACTATED RINGERS 1,000 ML 100 ML IV CONT (17:44)
[2021-06-29] MEDS: HYDROmorphone HCL INJ (*CRX) 1 MG/ML SYR 0.5 MG IV PUSH (17:49)
[2021-06-29] MEDS: HYDROmorphone HCL INJ (*CRX) 1 MG/ML SYR IV PUSH ×3 (19:01→23:44)
[2021-06-30] VITALS: O2SAT 93
[2021-06-30] MEDS: HYDROmorphone HCL INJ (*CRX) 1 MG/ML SYR IV PUSH ×11 (01:49→23:22)
[2021-06-30 04:00] VITALS: BP 135/75; PULSE 66; RESP 16; TEMP 36.8; O2SAT 95
[2021-06-30] MEDS: ACETAMINOPHEN 500 MG TABLET 1000 MG PO ×4 (05:57→23:23)
[2021-06-30 06:00] VITALS: BP 137/70; PULSE 65; RESP 14; TEMP 36.2; O2SAT 93
[2021-06-30 06:09] LABS: Basophils Percent Auto 0.1 % (0.2-1.2); Hemoglobin 14.5 g/dL (14.0-18.0); Immature Granulocyte Absolute 0.06 K/mm3 (0.00-0.031); Immature Granulocyte Percent A 0.4 % (0-0.5); Lymphocytes Absolute Auto 0.98 K/mm3 (0.9-3.2); Lymphocytes Percent Auto 6.5 % (18.3-44.2); Mean Corpuscular HGB Conc 34.5 g/dl (32-36); Mean Corpuscular Volume 98.6 fl (80-100); Monocytes Absolute Auto 0.9 K/mm3 (0.1-0.6); Neutrophils Absolute Auto 13.1 K/mm3 (1.3-6.7); Platelet Count Result 162 k/mm3 (150-375); Red Blood Count 4.26 M/mm3 (4.6-6.20); Red Cell Distribution Width 12.7 % (11.5-14.5); White Blood Count 15.1 K/mm3 (4.5-10.0)
[2021-06-30 06:36] LABS: Anion Gap 9 mmol/L (8-16); Blood Urea Nitrogen 9 mg/dL (9-20); Calcium 8.9 mg/dL (8.4-10.2); Carbon Dioxide 26 mmol/L (22-30); Chloride 100 mmol/L (98-107); Estimated CRCL calculation 102 ml/min; Estimated Glomerular Filt Rate > 60; Glucose 118 mg/dL (65-110); Potassium 4.3 mmol/L (3.4-5.0); Sodium 135 mmol/L (137-145)
[2021-06-30 08:00] VITALS: PULSE 65; RESP 14; O2SAT 93
[2021-06-30] MEDS: ALPRAZolam (*CRX) 0.5 MG TABLET 1 MG PO (09:09)
[2021-06-30] MEDS: SIMVASTATIN 20 MG TABLET PO (09:10)
[2021-06-30] MEDS: PANTOPRAZOLE 40 MG TABLET PO (09:10)
[2021-06-30] MEDS: amLODIPine BESYLATE 5 MG TABLET PO (09:11)
[2021-06-30] MEDS: ENOXAPARIN 40 MG/0.4 ML SYRINGE SUB-Q (09:12)
--- NOTE | 2021-06-30 09:48 | PM.PNGS ---
Progress Note: A&P Assessment and Plan (1) Diverticulitis large intestine w/o perforation or abscess w/o bleeding: Code(s): K57.32 - Diverticulitis of large intestine without perforation or abscess without bleeding Status: Acute Assessment and Plan: POD#1 and doing well. Continue clear liquids. Monitor NICK drain. Increase activity, up to chair today. Pathology pending. Additional Plan I have discussed the plan of care with Dr. Oconnor. Subjective Subjective Date/Time Seen: 06/30/21 09:30 Post Op day: 1 (JOSE sigmoid colectomy) Patient reports: still having pain, no flatus, no bowel movement and afebrile Interval history: Patient seen and examined this morning. He reports incisional abdominal pain/soreness that is being controlled with the IV Dilaudid. He feels slightly bloated, but denies nausea or vomiting. Tolerating clear liquids, but taking liquids slow and only sipping. Review of Systems Review of Systems: All systems reviewed & are unremarkable except as noted in HPI and below Constitutional: Constitutional: Reports as per HPI, Reports no additional constitutional complaints, Denies chills and Denies fever(s) Cardiovascular: Cardiovascular: Reports no additional cardiovascular complaints, Denies chest pain and Denies leg edema Respiratory: Respiratory: Reports no additional respiratory complaints, Denies cough and Denies dyspnea Gastrointestinal: Gastrointestinal: Reports as per HPI and Reports no additional gastrointestinal complaints Exam Const: General: comfortable, no acute distress, alert and awake Orientation/consciousness: patient oriented x3 Resp: Effort & Inspection: normal respiratory effort Auscultation: clear to auscultation bilaterally Cardio: Rate: regular rate Rhythm: regular rhythm GI: Inspection: incision (incisions clean and dry) and other (mildly distended) GI Palp: Yes Soft to palpation, Yes Tenderness to palpation present (GI) (incisional), No Guarding due to palpation present (GI), No Hernia present and Yes Other GI palpation findings present (NICK drain with serosanguineous drainage) Auscultation: normal bowel sounds Skin: General skin exam: normal color Neuro: General: moves all extremities and no focal motor deficits Extrem: General: no clubbing, cyanosis or edema and no calf tenderness Psych: Mental Status: mental status grossly normal Insight: Good insight present (Psych) Judgement: Good judgement present (Psych) Objective Data Vital Signs Vital Signs: Vital Signs - 24 hr 06/29/21 10:30 06/29/21 16:09 06/29/21 16:20 Temperature 97.3 F L 99.0 F Pulse Rate 81 87 75 Respiratory Rate 16 13 12 Blood Pressure 154/79 H 129/75 145/75 H Pulse Oximetry 98 91 92 06/29/21 16:30 06/29/21 16:45 06/29/21 17:00 Temperature Pulse Rate 80 75 77 Respiratory Rate 12 14 12 Blood Pressure 145/75 H 138/69 143/74 H Pulse Oximetry 92 92 94 06/29/21 17:15 06/29/21 17:28 06/29/21 17:35 Temperature 97.9 F Pulse Rate 76 80 76 Respiratory Rate 13 16 16 Blood Pressure 135/71 132/69 132/69 Pulse Oximetry 95 93 93 06/29/21 18:00 06/29/21 19:00 06/29/21 20:00 Temperature Pulse Rate 84 81 81 Respiratory Rate 16 16 16 Blood Pressure 130/75 155/81 H Pulse Oximetry 93 93 93 06/29/21 20:41 06/29/21 23:59 06/30/21 00:00 Temperature 97.5 F L 98.2 F Pulse Rate 89 79 Respiratory Rate 16 16 Blood Pressure 155/74 H 138/71 Pulse Oximetry 95 93 93 06/30/21 04:00 06/30/21 06:00 Temperature 98.2 F 97.1 F L Pulse Rate 66 65 Respiratory Rate 16 14 Blood Pressure 135/75 137/70 Pulse Oximetry 95 93 Intake/Output Intake/Output: Intake & Output 06/27/21 06/28/21 06/29/21 06/30/21 23:59 23:59 23:59 23:59 Intake Total 700 1410 Output Total 350 1400 Balance 350 10 Meds/Results Medications: Active Medications Generic Name Dose Route Start Last Admin Trade Name Freq PRN Reason Stop Dose Admin Acetaminophen 1,000 mg
[2021-06-30 14:05] VITALS: BP 119/75; PULSE 78; RESP 20; TEMP 36.5; O2SAT 92
--- NOTE | 2021-06-30 18:39 | P.PNAN_ITS ---
Anes - Prog Note Post-Op Date/Time: 06/30/21 18:39 Cardiovascular status: normal Respiratory status: normal Airway patency: baseline Mental status: baseline Post-Op hydration status: normal Vital Signs: Last Vital Signs Temp 36.5 C 06/30/21 14:05 Pulse 78 06/30/21 14:05 Resp 20 06/30/21 14:05 BP 119/75 06/30/21 14:05 Pulse Ox 92 06/30/21 14:05 Pain Score (VAS): 0 I/O: Intake & Output 06/30/21 06/30/21 06/30/21 07:59 15:59 23:59 Intake Total 1410 Output Total 1400 Balance 10 Laboratory Tests 06/30/21 06:01 06/30/21 06:01 06/30/21 06/30/21 06:01 06:01 WBC 15.1 H RBC 4.26 L Hgb 14.5 Hct 42.0 MCV 98.6 MCH 34.0 MCHC 34.5 RDW 12.7 Plt Count 162 MPV 11.0 H Immature Gran % (Auto) 0.4 Neut % (Auto) 87.0 H Lymph % (Auto) 6.5 L [place] % (Auto) 6.0 Eos % (Auto) 0.0 Baso % (Auto) 0.1 L Lymph # (Auto) 0.98 [place] # (Auto) 0.9 H Eos # (Auto) 0.0 Baso # (Auto) 0.0 Abs Immat Gran (auto) 0.06 H Absolute Neuts (auto) 13.1 H Absolute Nucleated RBC 0.0 Nucleated RBC % 0.0 Sodium 135 L Potassium 4.3 Chloride 100 Carbon Dioxide 26 Anion Gap 9 BUN 9 Creatinine 0.70 Estim Creat Clear Calc 102 Estimated GFR > 60 Glucose 118 H Calcium 8.9 Post-procedural complaints: none Patient Feedback: Patient satisfied with anesthetic care.
[2021-06-30 20:00] VITALS: BP 151/84; PULSE 65; RESP 16; TEMP 36.6; O2SAT 93
[2021-07-01] VITALS: BP 146/85; PULSE 70; RESP 18; TEMP 36.3; O2SAT 94
[2021-07-01] MEDS: HYDROmorphone HCL INJ (*CRX) 1 MG/ML SYR IV PUSH ×10 (02:13→22:51)
[2021-07-01] MEDS: ACETAMINOPHEN 500 MG TABLET 1000 MG PO ×4 (05:00→23:53)
[2021-07-01 05:09] VITALS: BP 143/68; PULSE 70; RESP 18; TEMP 36.2; O2SAT 95
[2021-07-01 05:36] LABS: Hematocrit 45.5 % (42.0-52.0); Hemoglobin 15.9 g/dL (14.0-18.0); Mean Corpuscular HGB Conc 34.9 g/dl (32-36); Mean Corpuscular Hemoglobin 34.9 pg (26-34); Mean Platelet Volume 10.5 fl (7.4-10.4); Platelet Count Result 171 k/mm3 (150-375); Red Blood Count 4.55 M/mm3 (4.6-6.20); Red Cell Distribution Width 13.1 % (11.5-14.5); White Blood Count 12.9 K/mm3 (4.5-10.0)
[2021-07-01 05:55] LABS: Anion Gap 10 mmol/L (8-16); Blood Urea Nitrogen 9 mg/dL (9-20); Calcium 9.4 mg/dL (8.4-10.2); Carbon Dioxide 27 mmol/L (22-30); Chloride 101 mmol/L (98-107); Estimated CRCL calculation 102 ml/min; Estimated Glomerular Filt Rate > 60; Glucose 102 mg/dL (65-110); Potassium 3.9 mmol/L (3.4-5.0); Sodium 138 mmol/L (137-145)
[2021-07-01 07:48] VITALS: BP 113/68; PULSE 63; RESP 16; TEMP 36.4; O2SAT 92
--- NOTE | 2021-07-01 08:25 | PM.PNGS ---
Progress Note: A&P Assessment and Plan (1) Diverticulitis large intestine w/o perforation or abscess w/o bleeding: Code(s): K57.32 - Diverticulitis of large intestine without perforation or abscess without bleeding Status: Acute Assessment and Plan: Patient still not tolerating much more than sips of clears and having difficulty with pain control. Will continue clear liquids today. He's distended and might be developing an ileus, but there are slight signs of bowel function returning. Will get abdominal Xray tomorrow if still not much improvement. Continue Dilaudid and Tylenol for pain control. Increase activity. Subjective Subjective Date/Time Seen: 07/01/21 08:25 Interval history: Patient still having a lot of pain and bloating. Passing flatus. No BM yet. Exam GI: Inspection: distended, incision (intact with glue) and other (NICK serosanguinous) GI Palp: Yes Tenderness to palpation present (GI) (diffuse) Auscultation: normal bowel sounds Objective Data Vital Signs Vital Signs: Vital Signs - 24 hr 06/30/21 14:05 06/30/21 20:00 07/01/21 00:00 Temperature 36.5 C 36.6 C 36.3 C L Pulse Rate 78 65 70 Respiratory Rate 20 16 18 Blood Pressure 119/75 151/84 H 146/85 H Pulse Oximetry 92 93 94 07/01/21 05:09 07/01/21 07:48 Temperature 36.2 C L Pulse Rate 70 63 Respiratory Rate 18 16 Blood Pressure 143/68 H 113/68 Pulse Oximetry 95 92 Intake/Output Intake/Output: Intake & Output 06/28/21 06/29/21 06/30/21 07/01/21 23:59 23:59 23:59 23:59 Intake Total 700 1410 400 Output Total 350 1650 530 Balance 350 -240 -130 Meds/Results Medications: Active Medications Generic Name Dose Route Start Last Admin Trade Name Freq PRN Reason Stop Dose Admin Acetaminophen 1,000 mg 06/29/21 18:00 07/01/21 05:00 Acetaminophen 500 Mg Tablet PO 1,000 mg Q6H KADEN Administration Alprazolam 1 mg 06/30/21 09:00 06/30/21 09:09 Alprazolam (*Crx) 0.5 Mg Tablet PO 1 mg QAM KADEN Administration Amlodipine Besylate 5 mg 06/30/21 09:00 06/30/21 09:11 Amlodipine Besylate 5 Mg Tablet PO 5 mg QAM KADEN Administration Enoxaparin Sodium 40 mg 06/30/21 09:00 06/30/21 09:12 Enoxaparin 40 Mg/0.4 Ml Syringe SUB-Q 40 mg DAILY KADEN Administration Hydromorphone HCl 1 mg 06/29/21 17:18 07/01/21 07:39 Hydromorphone Hcl Inj (*Crx) 1 Mg/Ml Syr IV PUSH 1 mg Q2H PRN Administration Pain Rated 7-10 Hydromorphone HCl 0.5 mg 06/29/21 17:18 06/29/21 17:49 Hydromorphone Hcl Inj (*Crx) 1 Mg/Ml Syr IV PUSH 0.5 mg Q2H PRN Administration Pain Rated 4-6 Lactated Ringer's 1,000 mls @ 100 mls/hr 06/29/21 17:18 06/30/21 05:04 Lr - Lactated Ringers Iv IV CONT Not Given .Q10H KADEN Ondansetron HCl 4 mg 06/29/21 17:18 Ondansetron Inj 4 Mg/2 Ml Vial IV PUSH Q4H PRN Nausea And Vomiting Pantoprazole Sodium 40 mg 06/30/21 09:00 06/30/21 09:10 Pantoprazole 40 Mg Tablet PO 40 mg QAM KADEN Administration Simvastatin 20 mg 06/30/21 09:00 06/30/21 09:10 Simvastatin 20 Mg Tablet PO 20 mg QAM KADEN Administration Labs Labs: Laboratory Results - last 24 hr 07/01/21 07/01/21 05:28 05:28 WBC 12.9 H RBC 4.55 L Hgb 15.9 Hct 45.5 MCV 100.0 MCH 34.9 H MCHC 34.9 RDW 13.1 Plt Count 171 MPV 10.5 H Sodium 138 Potassium 3.9 Chloride 101 Carbon Dioxide 27 Anion Gap 10 BUN 9 Creatinine 0.70 Estim Creat Clear Calc 102 Estimated GFR > 60 Glucose 102 Calcium 9.4 Quality VTE Prophylaxis VTE prophylaxis: mechanical ordered and pharmacologic ordered (Lovenox)
[2021-07-01] MEDS: amLODIPine BESYLATE 5 MG TABLET PO (08:33)
[2021-07-01] MEDS: SIMVASTATIN 20 MG TABLET PO (08:34)
[2021-07-01] MEDS: PANTOPRAZOLE 40 MG TABLET PO (08:34)
[2021-07-01] MEDS: ENOXAPARIN 40 MG/0.4 ML SYRINGE SUB-Q (08:35)
[2021-07-01] MEDS: ALPRAZolam (*CRX) 0.5 MG TABLET 1 MG PO (08:35)
[2021-07-01 14:03] VITALS: BP 132/77; PULSE 67; RESP 17; TEMP 36.6; O2SAT 94
[2021-07-01 20:00] VITALS: PULSE 67; RESP 17; O2SAT 94
[2021-07-01 21:51] VITALS: BP 118/69; PULSE 64; RESP 20; TEMP 36.7; O2SAT 94
[2021-07-02] MEDS: HYDROmorphone HCL INJ (*CRX) 1 MG/ML SYR IV PUSH ×6 (01:53→15:57)
[2021-07-02 05:18] VITALS: BP 116/72; PULSE 68; RESP 20; TEMP 37.1; O2SAT 96
[2021-07-02] MEDS: ACETAMINOPHEN 500 MG TABLET 1000 MG PO ×4 (05:34→23:46)
[2021-07-02 05:47] LABS: Hematocrit 42.5 % (42.0-52.0); Hemoglobin 15.1 g/dL (14.0-18.0); Mean Corpuscular HGB Conc 35.5 g/dl (32-36); Mean Corpuscular Hemoglobin 35.2 pg (26-34); Mean Corpuscular Volume 99.1 fl (80-100); Mean Platelet Volume 10.8 fl (7.4-10.4); Platelet Count Result 148 k/mm3 (150-375); Red Blood Count 4.29 M/mm3 (4.6-6.20); Red Cell Distribution Width 12.9 % (11.5-14.5); White Blood Count 10.7 K/mm3 (4.5-10.0)
[2021-07-02 06:02] LABS: Anion Gap 9 mmol/L (8-16); Blood Urea Nitrogen 9 mg/dL (9-20); Calcium 9.3 mg/dL (8.4-10.2); Carbon Dioxide 27 mmol/L (22-30); Chloride 98 mmol/L (98-107); Estimated CRCL calculation 102 ml/min; Estimated Glomerular Filt Rate > 60; Glucose 101 mg/dL (65-110); Potassium 3.7 mmol/L (3.4-5.0); Sodium 134 mmol/L (137-145)
[2021-07-02 08:32] VITALS: BP 131/67; PULSE 71; RESP 18; TEMP 37.1; O2SAT 94
[2021-07-02] MEDS: ALPRAZolam (*CRX) 0.5 MG TABLET 1 MG PO (09:35)
[2021-07-02] MEDS: amLODIPine BESYLATE 5 MG TABLET PO (09:35)
[2021-07-02] MEDS: PANTOPRAZOLE 40 MG TABLET PO (09:36)
[2021-07-02] MEDS: SIMVASTATIN 20 MG TABLET PO (09:36)
[2021-07-02] MEDS: ENOXAPARIN 40 MG/0.4 ML SYRINGE SUB-Q (09:36)
--- NOTE | 2021-07-02 12:16 | PM.PNGS ---
Progress Note: A&P Assessment and Plan (1) Diverticulitis large intestine w/o perforation or abscess w/o bleeding: Code(s): K57.32 - Diverticulitis of large intestine without perforation or abscess without bleeding Status: Acute Assessment and Plan: Slowly improving. Will advance to full liquids today. Increase activity. Transition to oral pain meds. Subjective Subjective Date/Time Seen: 07/02/21 12:16 Interval history: Passing flatus. No fevers. Pain better controlled. Tolerating clear liquids and hungry. No bloating or nausea. Exam GI: Inspection: incision (intact) and other (NICK serosanguinous) GI Palp: Yes Tenderness to palpation present (GI) (incisional) Auscultation: normal bowel sounds Other: less distended today Objective Data Vital Signs Vital Signs: Vital Signs - 24 hr 07/01/21 14:03 07/01/21 20:00 07/01/21 21:51 Temperature 36.6 C 36.7 C Pulse Rate 67 67 64 Respiratory Rate 17 17 20 Blood Pressure 132/77 118/69 Pulse Oximetry 94 94 94 07/02/21 05:18 07/02/21 08:32 Temperature 37.1 C 37.1 C Pulse Rate 68 71 Respiratory Rate 20 18 Blood Pressure 116/72 131/67 Pulse Oximetry 96 94 Intake/Output Intake/Output: Intake & Output 06/29/21 06/30/21 07/01/21 07/02/21 23:59 23:59 23:59 23:59 Intake Total 700 1410 2140 360 Output Total 350 1650 1795 20 Balance 350 -240 345 340 Meds/Results Medications: Active Medications Generic Name Dose Route Start Last Admin Trade Name Freq PRN Reason Stop Dose Admin Acetaminophen 1,000 mg 06/29/21 18:00 07/02/21 12:15 Acetaminophen 500 Mg Tablet PO 1,000 mg Q6H KADEN Administration Alprazolam 1 mg 06/30/21 09:00 07/02/21 09:35 Alprazolam (*Crx) 0.5 Mg Tablet PO 1 mg QAM KADEN Administration Amlodipine Besylate 5 mg 06/30/21 09:00 07/02/21 09:35 Amlodipine Besylate 5 Mg Tablet PO 5 mg QAM KADEN Administration Enoxaparin Sodium 40 mg 06/30/21 09:00 07/02/21 09:36 Enoxaparin 40 Mg/0.4 Ml Syringe SUB-Q 40 mg DAILY KADEN Administration Hydromorphone HCl 1 mg 06/29/21 17:18 07/02/21 10:46 Hydromorphone Hcl Inj (*Crx) 1 Mg/Ml Syr IV PUSH 1 mg Q2H PRN Administration Pain Rated 7-10 Hydromorphone HCl 0.5 mg 06/29/21 17:18 06/29/21 17:49 Hydromorphone Hcl Inj (*Crx) 1 Mg/Ml Syr IV PUSH 0.5 mg Q2H PRN Administration Pain Rated 4-6 Ondansetron HCl 4 mg 06/29/21 17:18 Ondansetron Inj 4 Mg/2 Ml Vial IV PUSH Q4H PRN Nausea And Vomiting Pantoprazole Sodium 40 mg 06/30/21 09:00 07/02/21 09:36 Pantoprazole 40 Mg Tablet PO 40 mg QAM KADEN Administration Simvastatin 20 mg 06/30/21 09:00 07/02/21 09:36 Simvastatin 20 Mg Tablet PO 20 mg QAM KADEN Administration Labs Labs: Laboratory Results - last 24 hr 07/02/21 07/02/21 05:36 05:36 WBC 10.7 H RBC 4.29 L Hgb 15.1 Hct 42.5 MCV 99.1 MCH 35.2 H MCHC 35.5 RDW 12.9 Plt Count 148 L MPV 10.8 H Sodium 134 L Potassium 3.7 Chloride 98 Carbon Dioxide 27 Anion Gap 9 BUN 9 Creatinine 0.70 Estim Creat Clear Calc 102 Estimated GFR > 60 Glucose 101 Calcium 9.3 Quality VTE Prophylaxis VTE prophylaxis: mechanical ordered and pharmacologic ordered (Lovenox)
[2021-07-02] MEDS: oxyCODONE HCL (*CRX) 5 MG TAB IR PO (13:22)
[2021-07-02 18:04] VITALS: BP 156/78; PULSE 72; RESP 12; TEMP 36.3; O2SAT 95
[2021-07-02] MEDS: oxyCODONE HCL (*CRX) 5 MG TAB IR 10 MG PO ×2 (18:41→23:46)
[2021-07-02 19:57] VITALS: BP 131/65; PULSE 70; RESP 17; TEMP 37.1; O2SAT 93
[2021-07-03 04:15] VITALS: BP 115/79; PULSE 68; RESP 18; TEMP 36.9; O2SAT 95
[2021-07-03 05:29] LABS: Hematocrit 42.6 % (42.0-52.0); Hemoglobin 14.9 g/dL (14.0-18.0); Mean Corpuscular Hemoglobin 34.7 pg (26-34); Mean Corpuscular Volume 99.1 fl (80-100); Mean Platelet Volume 11.2 fl (7.4-10.4); Platelet Count Result 152 k/mm3 (150-375); White Blood Count 8.2 K/mm3 (4.5-10.0)
[2021-07-03 05:53] LABS: Anion Gap 10 mmol/L (8-16); Blood Urea Nitrogen 12 mg/dL (9-20); Calcium 9.1 mg/dL (8.4-10.2); Carbon Dioxide 26 mmol/L (22-30); Chloride 99 mmol/L (98-107); Estimated CRCL calculation 102 ml/min; Estimated Glomerular Filt Rate > 60; Glucose 101 mg/dL (65-110); Potassium 3.5 mmol/L (3.4-5.0); Sodium 135 mmol/L (137-145)
[2021-07-03 06:03] LABS: CRP 13.7 mg/dL (<1.0)
[2021-07-03] MEDS: oxyCODONE HCL (*CRX) 5 MG TAB IR 10 MG PO ×4 (06:55→20:31)
[2021-07-03] MEDS: ACETAMINOPHEN 500 MG TABLET 1000 MG PO ×3 (06:55→17:44)
--- NOTE | 2021-07-03 07:59 | PM.PNGS ---
Progress Note: A&P Assessment and Plan (1) Diverticulitis large intestine w/o perforation or abscess w/o bleeding: Code(s): K57.32 - Diverticulitis of large intestine without perforation or abscess without bleeding Status: Acute Assessment and Plan: Advance to soft diet today. Continue to slowly advance. Possibly home in 1-2 days if continuing to improve. Subjective Subjective Date/Time Seen: 07/03/21 07:59 Interval history: Had a BM. Tolerating full liquids. Pain getting better. No nausea or vomiting. No fevers. Ambulating in halls. Exam GI: Inspection: incision (intact with glue) and other (NICK serosanguinous) GI Palp: Yes Tenderness to palpation present (GI) Auscultation: normal bowel sounds Objective Data Vital Signs Vital Signs: Vital Signs - 24 hr 07/02/21 08:32 07/02/21 18:04 07/02/21 19:57 Temperature 37.1 C 36.3 C L 37.1 C Pulse Rate 71 72 70 Respiratory Rate 18 12 17 Blood Pressure 131/67 156/78 H 131/65 Pulse Oximetry 94 95 93 07/03/21 04:15 Temperature 36.9 C Pulse Rate 68 Respiratory Rate 18 Blood Pressure 115/79 Pulse Oximetry 95 Intake/Output Intake/Output: Intake & Output 06/30/21 07/01/21 07/02/21 07/03/21 23:59 23:59 23:59 23:59 Intake Total 1410 2140 780 240 Output Total 1650 1795 30 30 Balance -240 345 750 210 Meds/Results Medications: Active Medications Generic Name Dose Route Start Last Admin Trade Name Jasiel PRN Reason Stop Dose Admin Acetaminophen 1,000 mg 06/29/21 18:00 07/03/21 06:55 Acetaminophen 500 Mg Tablet PO 1,000 mg Q6H KADEN Administration Alprazolam 1 mg 06/30/21 09:00 07/02/21 09:35 Alprazolam (*Crx) 0.5 Mg Tablet PO 1 mg QAM KADEN Administration Amlodipine Besylate 5 mg 06/30/21 09:00 07/02/21 09:35 Amlodipine Besylate 5 Mg Tablet PO 5 mg QAM KADEN Administration Enoxaparin Sodium 40 mg 06/30/21 09:00 07/02/21 09:36 Enoxaparin 40 Mg/0.4 Ml Syringe SUB-Q 40 mg DAILY KADEN Administration Hydromorphone HCl 1 mg 06/29/21 17:18 07/02/21 15:57 Hydromorphone Hcl Inj (*Crx) 1 Mg/Ml Syr IV PUSH 1 mg Q2H PRN Administration Pain Rated 7-10 Hydromorphone HCl 0.5 mg 06/29/21 17:18 06/29/21 17:49 Hydromorphone Hcl Inj (*Crx) 1 Mg/Ml Syr IV PUSH 0.5 mg Q2H PRN Administration Pain Rated 4-6 Ondansetron HCl 4 mg 06/29/21 17:18 Ondansetron Inj 4 Mg/2 Ml Vial IV PUSH Q4H PRN Nausea And Vomiting Oxycodone HCl 5 mg 07/02/21 12:15 07/02/21 13:22 Oxycodone Hcl (*Crx) 5 Mg Tab Ir PO 5 mg Q4H PRN Administration Pain Rated 4-6 Oxycodone HCl 10 mg 07/02/21 12:15 07/03/21 06:55 Oxycodone Hcl (*Crx) 5 Mg Tab Ir PO 10 mg Q4H PRN Administration Pain Rated 7-10 Pantoprazole Sodium 40 mg 06/30/21 09:00 07/02/21 09:36 Pantoprazole 40 Mg Tablet PO 40 mg QAM KADEN Administration Simvastatin 20 mg 06/30/21 09:00 07/02/21 09:36 Simvastatin 20 Mg Tablet PO 20 mg QAM KADEN Administration Labs Labs: Laboratory Results - last 24 hr 07/03/21 07/03/21 04:59 04:59 WBC 8.2 RBC 4.30 L Hgb 14.9 Hct 42.6 MCV 99.1 MCH 34.7 H MCHC 35.0 RDW 13.0 Plt Count 152 MPV 11.2 H Sodium 135 L Potassium 3.5 Chloride 99 Carbon Dioxide 26 Anion Gap 10 BUN 12 Creatinine 0.70 Estim Creat Clear Calc 102 Estimated GFR > 60 Glucose 101 Calcium 9.1 C-Reactive Protein 13.7 H Quality VTE Prophylaxis VTE prophylaxis: mechanical ordered and pharmacologic ordered (Lovenox)
[2021-07-03 08:47] VITALS: BP 136/67; PULSE 75; RESP 18
[2021-07-03] MEDS: ALPRAZolam (*CRX) 0.5 MG TABLET 1 MG PO (08:51)
--- NOTE | 2021-07-03 08:53 | PC.NURSE ---
call to pharmacy for missing a.m meds, pt transferred units and meds did not come to floor
[2021-07-03] MEDS: SIMVASTATIN 20 MG TABLET PO (10:16)
[2021-07-03] MEDS: PANTOPRAZOLE 40 MG TABLET PO (10:17)
[2021-07-03] MEDS: ENOXAPARIN 40 MG/0.4 ML SYRINGE SUB-Q (10:17)
[2021-07-03] MEDS: amLODIPine BESYLATE 5 MG TABLET PO (10:17)
[2021-07-03 14:00] VITALS: BP 134/65; PULSE 75; RESP 16; TEMP 36.6; O2SAT 96
[2021-07-03 19:50] VITALS: BP 138/70; PULSE 65; RESP 18; TEMP 36.5; O2SAT 95
[2021-07-04] MEDS: ACETAMINOPHEN 500 MG TABLET 1000 MG PO ×3 (00:13→12:23)
[2021-07-04] MEDS: oxyCODONE HCL (*CRX) 5 MG TAB IR 10 MG PO ×3 (00:13→08:43)
[2021-07-04 03:45] VITALS: BP 124/68; PULSE 65; RESP 18; TEMP 36.4; O2SAT 93
[2021-07-04 05:41] LABS: Hematocrit 41.6 % (42.0-52.0); Hemoglobin 14.8 g/dL (14.0-18.0); Mean Corpuscular HGB Conc 35.6 g/dl (32-36); Mean Corpuscular Hemoglobin 34.4 pg (26-34); Mean Corpuscular Volume 96.7 fl (80-100); Mean Platelet Volume 11.2 fl (7.4-10.4); Platelet Count Result 182 k/mm3 (150-375); Red Cell Distribution Width 12.9 % (11.5-14.5)
[2021-07-04 05:56] LABS: Anion Gap 9 mmol/L (8-16); Blood Urea Nitrogen 18 mg/dL (9-20); Calcium 9.3 mg/dL (8.4-10.2); Carbon Dioxide 27 mmol/L (22-30); Chloride 100 mmol/L (98-107); Estimated CRCL calculation 81 ml/min; Estimated Glomerular Filt Rate > 60; Glucose 106 mg/dL (65-110); Potassium 3.6 mmol/L (3.4-5.0); Sodium 136 mmol/L (137-145)
[2021-07-04] MEDS: ALPRAZolam (*CRX) 0.5 MG TABLET 1 MG PO (08:43)
[2021-07-04] MEDS: amLODIPine BESYLATE 5 MG TABLET PO (08:44)
[2021-07-04] MEDS: SIMVASTATIN 20 MG TABLET PO (08:44)
[2021-07-04] MEDS: ENOXAPARIN 40 MG/0.4 ML SYRINGE SUB-Q (08:44)
[2021-07-04] MEDS: PANTOPRAZOLE 40 MG TABLET PO (08:44)
--- NOTE | 2021-07-04 10:26 | PM.DS ---
DS: Admitting Diagnosis Discharge Date 07/04/2021 Admitting Diagnosis diverticulitis of large intestine without perforation or abscess DS: Discharge Diagnosis Discharge Diagnosis (1) Diverticulitis large intestine w/o perforation or abscess w/o bleeding: Code(s): K57.32 - Diverticulitis of large intestine without perforation or abscess without bleeding Status: Acute (2) Hypertension: Qualifiers: Hypertension type: primary hypertension Qualified Code(s): I10 - Essential (primary) hypertension Code(s): I10 - Essential (primary) hypertension Status: Acute (3) BMI 28.0-28.9,adult: Code(s): Z68.28 - Body mass index [BMI] 28.0-28.9, adult Status: Acute (4) Tobacco abuse: Code(s): Z72.0 - Tobacco use Status: Acute DS: Summary Hospital Course Reason for hospitalization: diverticulitis Hospital Course: this is a 61-year-old man who presented for sigmoid colectomy for recurrent diverticulitis. He underwent hand assisted laparoscopic sigmoid colectomy with colorectal anastomosis on 06/29/2021. A surgical drain was placed at the time of surgery. He was admitted to the hospital postoperatively. He was started on clear liquid diet initially and pain was controlled with IV pain medications. He was also placed on scheduled Tylenol oral. Postop day 1 he was still experiencing a significant amount of abdominal pain. This was likely mostly related to gas from laparoscopic procedure. He was kept on a clear liquid diet because he was still in so much pain and was not showing much sign of bowel function returning yet. On postop day 2 he was still in significant pain and therefore was kept on clear liquid diet. NICK drain was remaining serosanguineous and he was remaining hemodynamically stable with no evidence of tachycardia. His activity was gradually advanced and he was encouraged to increase the amount of ambulation. He was starting to pass some flatus. On postop day 3 he was advanced to a full liquid diet and did have a bowel movement. His activity was further advanced as tolerated. On postop day 4 he was then advanced to a soft low-fiber diet. He was still moving his bowels and was remaining hemodynamically stable. NICK drain was minimal serosanguineous. On postop day 5 he was continuing to move his bowels and was ambulating without much difficulty. Pain was much better controlled. His NICK drain was removed. Was discharged on postop day 5. Time spent discussing smoking cessation with patient: 3 to 10 minutes Status at Discharge Functional status at discharge: independent ambulation Overall status at discharge: patient is progressing back to baseline Time Spent with Patient Time attestation: Total time spent providing and/or coordinating discharge services: Time spent: Less than 30 minutes Exam GI: Inspection: incision (intact with glue) and other (NICK serosanguinous) GI Palp: Yes Tenderness to palpation present (GI) Auscultation: normal bowel sounds DS: Data Data Completed and Pending Completed studies during hospitalization: Pending at discharge 06/29/21 15:06 Surgical [PTH] Routine Labs on day of discharge: Labs from last 24 hours 07/04/21 07/04/21 05:03 05:03 WBC 7.0 RBC 4.30 L Hgb 14.8 Hct 41.6 L MCV 96.7 MCH 34.4 H MCHC 35.6 RDW 12.9 Plt Count 182 MPV 11.2 H Sodium 136 L Potassium 3.6 Chloride 100 Carbon Dioxide 27 Anion Gap 9 BUN 18 Creatinine 0.90 Estim Creat Clear Calc 81 Estimated GFR > 60 Glucose 106 Calcium 9.3 C-Reactive Protein 8.0 H Discharge Plan Discharge Attending physician on discharge: Cory Oconnor Discharging Clinician: Coyr Oconnor Patient Disposition: Home, Self-Care Activity: other - see discharge instructions Diet: low fiber Wound Care Instructions: other - see discharge instructions Discharge Instructions: Continue soft low-fiber
[2021-07-04 10:35] VITALS: O2SAT 94
[2021-07-04] MEDS: oxyCODONE HCL (*CRX) 5 MG TAB IR PO (11:54)
--- NOTE | 2021-07-04 12:40 | PC.NURSE ---
Patient D/Cd by personal vehicle by . Patients medications sent to the pharmacy and follow up instructions sent. 1240 07/04/21
== END 2021-07-04 12:40 | disposition home or self-care (01) | DRG 331 ==
LOC: ANHSUROVER 17:20 → ANH2MED 07-02 18:38
PROVIDERS: Nurse Practitioner Family; Admitting Provider Surgery; PCP Family Medicine Adolescent Medicine; Visit Provider Surgery
PROC: 0D1E4Z4 Bypass Large Intestine to Cutaneous, Percutaneous Endoscopic Approach (ICD-10-PCS; principal; 2021-06-29 12:00)
DX: K57.32 Diverticulitis of large intestine without perforation or abscess without bleeding (principal); I10 Essential (primary) hypertension; J44.9 Chronic obstructive pulmonary disease, unspecified; K21.9 Gastro-esophageal reflux disease without esophagitis; F41.9 Anxiety disorder, unspecified; F17.210 Nicotine dependence, cigarettes, uncomplicated; Z85.46 Personal history of malignant neoplasm of prostate
CPT/HCPCS: 36415; 80048; 85025; 85027; 86140; 88305; 88307; A9270; C1729; C9290; J0330; J0360; J0690; J1100; J1170; J1650; J1885; J2250; J2405; J2704; J2710; J3010; J7030; J7120

== ENCOUNTER 2021-07-20 14:05 | Outpatient (CLI) | payer BC, SELFPAY ==
[2021-07-20 15:07] LABS: Basophils Absolute Auto 0.1 K/mm3 (0.0-0.1); Basophils Percent Auto 0.8 % (0.2-1.2); Eosinophils Absolute Auto 0.1 K/mm3 (0-0.3); Eosinophils Percent Auto 1.8 % (0-4.4); Hematocrit 43.6 % (42.0-52.0); Hemoglobin 15.3 g/dL (14.0-18.0); Immature Granulocyte Absolute 0.02 K/mm3 (0.00-0.031); Immature Granulocyte Percent A 0.3 % (0-0.5); Lymphocytes Absolute Auto 1.84 K/mm3 (0.9-3.2); Lymphocytes Percent Auto 24.9 % (18.3-44.2); Mean Corpuscular HGB Conc 35.1 g/dl (32-36); Mean Corpuscular Hemoglobin 33.6 pg (26-34); Mean Corpuscular Volume 95.6 fl (80-100); Mean Platelet Volume 10.8 fl (7.4-10.4); Monocytes Absolute Auto 0.4 K/mm3 (0.1-0.6); Monocytes Percent Auto 5.8 % (2.6-8.5); Neutrophils Absolute Auto 4.9 K/mm3 (1.3-6.7); Neutrophils Percent Auto 66.4 % (45.5-73.1); Platelet Count Result 260 k/mm3 (150-375); Red Blood Count 4.56 M/mm3 (4.6-6.20); Red Cell Distribution Width 12.3 % (11.5-14.5); White Blood Count 7.4 K/mm3 (4.5-10.0)
[2021-07-20 15:23] LABS: Anion Gap 7 mmol/L (8-16); Blood Urea Nitrogen 21 mg/dL (9-20); Calcium 9.6 mg/dL (8.4-10.2); Carbon Dioxide 25 mmol/L (22-30); Chloride 104 mmol/L (98-107); Estimated Glomerular Filt Rate > 60; Glucose 99 mg/dL (65-110); Sodium 136 mmol/L (137-145)
== END 2021-07-20 14:06 | disposition home or self-care (01) ==
PROVIDERS: PCP Family Medicine Adolescent Medicine; Visit Provider Surgery
DX: K57.32 Diverticulitis of large intestine without perforation or abscess without bleeding (principal)
CPT/HCPCS: 36415; 80048; 85025

== ENCOUNTER → 2021-09-03 16:11 | Outpatient (CLI) | payer BC, SELFPAY ==
--- NOTE | ~2021-09-03 | XR_ITS ---
XR lumbar spine 2-3V DATE: 09/03/2021 17:00 INDICATION: Low back pain TECHNIQUE: AP, lateral, coned lateral lumbosacral views COMPARISON: None FINDINGS: Normal alignment lumbar spine. No fracture or bone destruction or spondylolisthesis. Includ ed lower thoracic and lumbar pedicles are intact. There is moderately prominent degenerative spurring of the lumbar spine. There is moderate loss of in terspace height at L5-S1. The sacroiliac joints are intact. Abdominal aortic and iliac arterial calcifications. IMPRESSION: Mild to moderate degenerative disc disease Reviewed, dictated and finalized at location A.
== END ==
PROVIDERS: PCP Family Medicine Adolescent Medicine; Visit Provider Physician Assistant
DX: M54.50 Low back pain, unspecified (principal); M51.36 Other intervertebral disc degeneration, lumbar region
CPT/HCPCS: 72100

== ENCOUNTER → 2021-10-14 06:57 | Outpatient (CLI) | payer BC, SELFPAY ==
--- NOTE | ~2021-10-14 | MR_ITS ---
EXAMINATION: MR lumbar spine wo con DATE: 10/14/2021 07:37 INDICATION: Low back pain, unspecified. TECHNIQUE: Magnetic resonance imaging (MRI) of the lumbar spine was performed without intravenous con trast. Sequences included sagittal T2-weighted FSE, sagittal T2-weighted FS FSE, sagittal T1-weighted FSE, and axial T2-weighted FSE. COMPARISON: Lumbar spine radiographs 09/03/2021 FINDINGS: There is 3 degrees dextrocurvature of thoracolumbar spine. Vertebral body heights are danish l. There is mildly decreased disc height at L4-L5 and moderately decreased disc height at L5-S1 with endplate remodeling. The distal spinal cord signal intensity is normal. The conus medullaris is at L1 . The following disc levels are specifically discussed: L1-L2: The disc is bulging. There is mild right and moderate left facet joint osteoarthritis. There i s mild right neural foraminal stenosis. There is mild central canal stenosis. L2-L3: The disc is bulging and has an annular fissure. There is severe bilateral facet joint osteoart hritis. There is mild bilateral neural foraminal stenosis. There is mild central canal stenosis. L3-L4: The disc is bulging and has an annular fissure. There is severe bilateral facet joint osteoart hritis. There is mild right and moderate left neural foraminal stenosis. There is mild central canal stenosis. L4-L5: The disc is bulging. There is severe bilateral facet joint osteoarthritis. There is mild bilat eral neural foraminal stenosis. There is mild central canal stenosis. L5-S1: The disc is bulging and has an annular fissure. There is moderate right and severe left facet joint osteoarthritis. There is mild right and moderate left neural foraminal stenosis. There is mild central canal stenosis. IMPRESSION: 1. Moderate lumbar spondylosis. Reviewed, dictated and finalized at location B.
== END ==
PROVIDERS: PCP Family Medicine Adolescent Medicine; Visit Provider Physician Assistant
DX: M47.817 Spondylosis without myelopathy or radiculopathy, lumbosacral region (principal); M48.07 Spinal stenosis, lumbosacral region
CPT/HCPCS: 72148